=== PATIENT | female | born 1945 | race Caucasian/White ===

== ENCOUNTER 2018-06-22 12:41 | Outpatient (CLI) | payer MEDICARE ==
--- NOTE | 2018-06-25 15:46 | MMO ---
BILATERAL SCREENING MAMMOGRAM: Date: 06/22/18 HISTORY: Screening. COMPARISON: Mammograms from 2017, 2016, and 2015. TECHNIQUE: Bilateral screening CC and MLO mammograms. This patient's mammogram was interpreted with the assistance of computer-aided detection. FINDINGS: Scattered fibroglandular densities. Benign calcifications left breast. No suspicious mass, architectu ral distortion, or microcalcifications. IMPRESSION: BIRADS 2: Benign Finding(s) Continued annual mammographic screening is recommended. POS: MARGI
== END 2018-06-22 12:42 | disposition home or self-care (01) ==
LOC: SCSMAMMO 12:41
PROVIDERS: ATTEND Family Medicine
DX: Z12.31 Encounter for screening mammogram for malignant neoplasm of breast (principal)
CPT/HCPCS: 77067